=== PATIENT | female | born 2000 | race African-American/Black ===

== ENCOUNTER 2020-12-29 13:57 | Outpatient (CLI) | payer BC, OTHER ==
[2020-12-29 16:13] LABS: BHCG - Serum Negative (NEGATIVE); Pregs Control Background? CLEAR/WHITE (CLR/WHITE); Pregs Control Bar Appear? YES (CONTROL BAR)
[2020-12-30 06:46] LABS: SARS-CoV-2 PCR by NAA Not Detected (NotDetected)
== END 2020-12-29 13:58 | disposition home or self-care (01) ==
LOC: LABBT 13:57
PROVIDERS: ATTEND Orthopaedic Surgery
DX: Z01.812 Encounter for preprocedural laboratory examination (principal); S83.511A Sprain of anterior cruciate ligament of right knee, initial encounter; Z20.822 Contact with and (suspected) exposure to COVID-19
CPT/HCPCS: 84703; 87635; U0003; U0005

== ENCOUNTER 2021-01-01 06:08 | Observation (INO) | payer BC, OTHER ==
[2020-12-30 14:26] VITALS: BMI 29.8
[2021-01-01] MEDS ORDERED: Fentanyl 100 MCG/2 ML VIAL ONE ×2 (06:30→06:57)
[2021-01-01] MEDS ORDERED: Midazolam HCl 2 mg/2 ml Vial ONE (06:57)
[2021-01-01] MEDS ORDERED: Fentanyl 100 MCG/2 ML VIAL SLOW IVP PRN (07:34)
[2021-01-01] MEDS ORDERED: HYDROcodone/Acetaminophen 10/325 mg Tablet PO PRN ×2 (07:45)
[2021-01-01] MEDS ORDERED: Zolpidem Tartrate 5 MG TAB PO PRN (07:45)
[2021-01-01] MEDS ORDERED: traMADol HCl 50 MG TAB PO PRN ×2 (07:45)
[2021-01-01] MEDS ORDERED: Ropivacaine 0.2% 550 ML 550 ML NERVE BLCK SCH (07:45)
[2021-01-01] MEDS ORDERED: Promethazine HCl 25 MG/ML VIAL IM PRN ×2 (07:45→09:53)
[2021-01-01] MEDS ORDERED: Ondansetron PF 4 MG/2 ML Vial IVP PRN (07:45)
[2021-01-01] MEDS ORDERED: Morphine 2 MG/ML VIAL SLOW IVP PRN (07:59)
[2021-01-01] MEDS ORDERED: Methocarbamol 500 MG TAB PO PRN (07:59)
[2021-01-01] MEDS ORDERED: Milk Of Magnesia 30 ML UDCUP PO PRN (07:59)
[2021-01-01] MEDS ORDERED: diphenhydrAMINE 50 MG CAP PO PRN (07:59)
[2021-01-01] MEDS ORDERED: HYDROcodone/Acetaminophen 7.5/325 mg Tablet PO PRN ×2 (07:59)
[2021-01-01] MEDS ORDERED: Acetaminophen 500 MG TAB PO PRN (07:59)
[2021-01-01] MEDS ORDERED: Bisacodyl 10 MG SUPP PR PRN (07:59)
[2021-01-01] MEDS ORDERED: Dexamethasone 20 MG/5 ML VIAL ONE (09:14)
[2021-01-01] MEDS ORDERED: Bupivacaine HCl 0.5%/Epinephrine 1:200,000/PF 30 ml Vial ONE (09:14)
[2021-01-01] MEDS ORDERED: PROPOFOL 200 MG/20 ML VIAL ONE (09:14)
[2021-01-01] MEDS ORDERED: Lidocaine 1% PF 5 ML VIAL ONE (09:14)
[2021-01-01] MEDS ORDERED: Promethazine HCl 25 MG/ML VIAL SLOW IVP PRN (09:53)
[2021-01-01] MEDS ORDERED: Ondansetron HCl/PF 4 MG/2 ML Vial IVP PRN (09:53)
[2021-01-01] MEDS ORDERED: Bupivacaine 0.5% 10 ML VIAL ONE (10:28)
[2021-01-01] MEDS: Famotidine 20 MG TAB PO SCH ×2 (12:15→20:02)
[2021-01-01] MEDS: Ketorolac Tromethamine 30 MG/ML VIAL IVP SCH ×3 (12:23→23:39)
[2021-01-01] MEDS: Dextrose 5 %-0.45 % NaCl 1,000 ML IV SCH ×2 (14:41→16:25)
[2021-01-01] MEDS: CEFAZOLIN 2 GM in Premix Bag 1 BAG IVPB SCH ×2 (15:10→23:39)
[2021-01-02] MEDS: Dextrose 5 %-0.45 % NaCl 1,000 ML IV SCH (04:04)
[2021-01-02] MEDS: Ketorolac Tromethamine 30 MG/ML VIAL IVP SCH ×2 (05:07→11:07)
[2021-01-02] MEDS: Famotidine 20 MG TAB PO SCH (08:45)
[2021-01-02 11:23] VITALS: BP 118/78; TEMP 97.4
== END 2021-01-02 12:00 | disposition home or self-care (01) ==
LOC: SDC 06:08 → SJJU 12:06
PROVIDERS: ADMIT Orthopaedic Surgery; ATTEND Orthopaedic Surgery
PROC: 0MRN47Z Replacement of Right Knee Bursa and Ligament with Autologous Tissue Substitute, Percutaneous Endoscopic Approach (ICD-10-PCS; principal; 2021-01-01)
PROC: 3E0T3BZ Introduction of Anesthetic Agent into Peripheral Nerves and Plexi, Percutaneous Approach (ICD-10-PCS; 2021-01-01)
DX: S83.511A Sprain of anterior cruciate ligament of right knee, initial encounter (principal); M94.261 Chondromalacia, right knee; G89.18 Other acute postprocedural pain; X58.XXXA Exposure to other specified factors, initial encounter; Y93.67 Activity, basketball
CPT/HCPCS: 96374; 96375; 96376; A4306; C1713; G0378; J0690; J1100; J1885; J2250; J2704; J2795; J3010; J3490